=== PATIENT | female | born 1970 | race Caucasian/White ===

== ENCOUNTER 2019-06-21 08:43 | Emergency (ER) | payer OTHER ==
[~2019-06-21] VITALS: Ht 162.6 cm; Wt 93.4 kg
[2019-06-21 09:01] VITALS: Ht 162.6 cm; Wt 93.4 kg
[2019-06-21 10:38] VITALS: BP 127/75
== END 2019-06-21 10:38 | disposition home or self-care (01) ==
LOC: ED 08:43
DX: J20.9 Acute bronchitis, unspecified (principal)
CPT/HCPCS: Q0092